=== PATIENT | female | born 1965 | race Hispanic/Latino ===

== ENCOUNTER → 2017-09-06 | Day surgery (SDC) | payer OTHER ==
[2017-08-13 10:49] LABS: BASOPHILS % 0.3 % (0.0-1.0); EOSINOPHILS # (AUTO) 0.1 (0.0-0.4); EOSINOPHILS % 1.4 % (0.0-6.0); LYMPHOCYTES # (AUTO) 2.9 (1.0-3.2); MEAN CORPUSCULAR HEMOGLOBIN 27.2 pg (28-32); MEAN CORPUSCULAR HGB CONC 32.5 g/dL (31-35); MEAN CORPUSCULAR VOLUME 83.7 fL (81-99); MONOCYTES # (AUTO) 0.5 (0.2-0.8); MONOCYTES % 6.9 % (4.4-11.3); NEUTROPHILS # (AUTO) 3.1 (2.1-6.9); NEUTROPHILS % 47.2 % (38.7-80.0); PLATELET COUNT 304 x10e3/uL (140-360); RED BLOOD COUNT 4.78 x10e6/uL (3.6-5.1); RED CELL DISTRIBUTION WIDTH 13.8 % (11.7-14.4)
[2017-08-13 10:49] LABS: BILIRUBIN,URINE NEGATIVE (NEGATIVE); CLARITY,URINE SL CLOUDY (CLEAR); COLOR,URINE YELLOW (YELLOW); KETONES,URINE NEGATIVE (NEGATIVE); LEUKOCYTE ESTERASE ,URINE 1+ (NEGATIVE); NITRITE,URINE NEGATIVE (NEGATIVE); PROTEIN,URINE DIPSTICK NEGATIVE (NEGATIVE); URINE UROBILINOGEN 0.2 mg/dL (0.2 - 1)
[2017-08-13 11:16] LABS: ALANINE AMINOTRANSFERASE 35 IU/L (0-55); ALKALINE PHOSPHATASE 54 IU/L (40-150); ANION GAP 12.1 mmol/L (8-16); BLOOD UREA NITROGEN 8 mg/dL (7-26); BUN/CREATININE RATIO 11 (6-25); CALCIUM 9.6 mg/dL (8.4-10.2); CARBON DIOXIDE 26 mmol/L (22-29); CHLORIDE 108 mmol/L (98-107); EST GLOMERULAR FILTRATION RATE > 60 ML/MIN (60-); GLUCOSE 87 mg/dL (74-118); POTASSIUM 4.1 mmol/L (3.5-5.1); SODIUM 142 mmol/L (136-145)
--- NOTE | 2017-08-13 11:59 | Diagnostic Imaging Report ---
PROCEDURE: Frontal and lateral views of the chest. COMPARISON: [facility], , CHEST 2 VIEWS, 06/30/2016, 23:32. INDICATIONS: PREOPERATIVE CHEST XRAY FOR GALLBLADDER SURGERY FINDINGS: Lines/tubes: None. Lungs: The lungs are well inflated. Stable 3 mm calcified granuloma in the right midlung. There is no evidence of pneumonia or pulmonary edema. Pleura: There is no pleural effusion or pneumothorax. Heart and mediastinum: The heart and the mediastinum are normal. Bones: No acute bony abnormality. IMPRESSION: 1. No acute cardiopulmonary abnormalities. Grayson Mondragon M.D. Dictated by: Grayson Mondragon M.D. on 08/13/2017 at 12:02 Electronically approved by: Grayson Mondragon M.D. on 08/13/2017 at 12:02
[~2017-09-06] MED LIST: ALENDRONATE SOD70 MG PO; BUPIVACAINE 0.25% 30ML SDV INJ ONE; CALCIUM PO; DEXAMETHASONE SOD PHOS INJ 4 MG/ML VIAL ONE; DICLOFENAC PO; DICYCLOMINE HCL20 MG PO; FENTANYL CITRATE/PF 100MCG/2 ML INJ ONE; HYDROCODONE/APAP 7.5MG-325MG 1 EA TAB ONE; KETOROLAC TROMETHAMINE 30 MG/ML VIAL ONE; LIDOCAINE HCL 2% LOCAL INJ 5 ML SDV VIAL INJ ONE; METHOCARBAMOL750 MG PO; MIDAZOLAM HCL 2 MG/2 ML VIAL ONE; NAPROXEN250 MG PO; ONDANSETRON HCL INJ 2 MG/ML VIAL ONE; PROPOFOL IV EMULSION 10 MG/ML 20 ML VIAL ONE; ROCURONIUM BROMIDE 10 MG/ML 5ML VIAL ONE; SEVOFLURANE INHAL SOLN 250 ML PEN BTL ONE; VIT D PO
--- NOTE | 2017-09-06 10:15 | Operative Report ---
DATE OF PROCEDURE: September 06, 2017 PREOPERATIVE DIAGNOSES 1. Biliary dyskinesia. 2. Heartburn. POSTOPERATIVE DIAGNOSES 1. Biliary dyskinesia. 2. Heartburn. OPERATIONS PERFORMED 1. Laparoscopic cholecystectomy. 2. Esophagogastroduodenoscopy. AGENT CONTRACT CLERK: TERRA Starr. ANESTHESIA: General. COMPLICATIONS: None. ESTIMATED BLOOD LOSS: Minimal. DESCRIPTION OF PROCEDURE: With the patient lying in bed in the supine position and under good general endotracheal anesthesia, the abdomen was prepped with Betadine solution and draped in the usual manner. A Veress needle was introduced into the umbilicus and pneumoperitoneum was established without any difficulty. An 11-mm trocar was placed into the umbilicus, and a 10 mm video laparoscope was placed into the intra-abdominal cavity. Under direct vision, three 5-mm trocars were placed in the right subcostal region. Video laparoscopy at this point revealed some adhesions to the lower abdomen from the patient's previous pelvic surgery. The liver appeared to be normal. The gallbladder was somewhat distended, boggy and thin walled. There were some adhesions from the duodenum and stomach to the gallbladder. Otherwise, the rest of the abdominal exploration was within normal limits. The adhesions to the gallbladder were then slowly and carefully taken down. The peritoneum overlying the neck of the gallbladder was then opened and the cystic duct was identified. The cystic duct was followed to its junction with the common duct. Cystic duct was then circumferentially dissected away from the common duct, doubly clipped and divided. The cystic artery was similarly doubly clipped and divided. The gallbladder was then slowly and carefully taken off the liver bed using the cautery scissors. Perfect hemostasis was ascertained. The gallbladder was then grasped through the umbilical port and removed without any difficulty. Video laparoscopy was then again carried out. The liver bed was found to be perfectly dry. All the excess fluid was aspirated. The pneumoperitoneum was evacuated, and all the trocars were removed under direct vision. The midline fascia at the umbilicus was then closed with figure-of-8 of 0 Vicryl. All layers were infiltrated on the way out with a solution of 0.25% percent Marcaine. Subcutaneous tissue was approximated with 3-0 Vicryl and the skin was closed with subcuticular 5-0 Vicryl. Benzoin, Steri-Strips and Band-Aids were applied. The sponge, lap and needle count was correct. The flexible Olympus gastroscope was introduced into the back of the throat and slowly and carefully advanced. The entire length of the esophagus was found to be within normal limits. The esophagogastric junction showed some minimal signs of esophagitis. The stomach was then entered and insufflated and inspected, including retroflexion of the scope. This showed pretty normal mucosal pattern with no polypoid masses or other mucosal lesions. The pylorus was entered and the duodenum was examined all the way up to the 3rd portion, and it appeared to be within normal limits. The scope was then slowly and carefully withdrawn. The patient tolerated both procedures well, and returned to the recovery room in stable condition. Job#: [id number] CARLY
== END | disposition home or self-care (01) ==
LOC: OR 05:13
PROVIDERS: ATTEND Surgery
DX: K81.1 Chronic cholecystitis (principal); K20.9 Esophagitis, unspecified; K21.9 Gastro-esophageal reflux disease without esophagitis; K58.9 Irritable bowel syndrome, unspecified; R00.1 Bradycardia, unspecified; Z88.8 Allergy status to other drugs, medicaments and biological substances; Z01.810 Encounter for preprocedural cardiovascular examination; Z01.812 Encounter for preprocedural laboratory examination; Z01.818 Encounter for other preprocedural examination
CPT/HCPCS: 36415; 43235; 47562; 71046; 80053; 81003; 85025; 88304; 93005; C1766; J1100; J1885; J2001; J2250; J2405

== ENCOUNTER 2017-09-11 14:16 | Emergency (ER) | payer OTHER ==
[~2017-09-11] VITALS: Ht 162.6 cm; Wt 68.0 kg
[~2017-09-11 14:16] MED LIST changes: -BUPIVACAINE 0.25% 30ML SDV INJ ONE; -DEXAMETHASONE SOD PHOS INJ 4 MG/ML VIAL ONE; -FENTANYL CITRATE/PF 100MCG/2 ML INJ ONE; -HYDROCODONE/APAP 7.5MG-325MG 1 EA TAB ONE; -KETOROLAC TROMETHAMINE 30 MG/ML VIAL ONE; -LIDOCAINE HCL 2% LOCAL INJ 5 ML SDV VIAL INJ ONE; -MIDAZOLAM HCL 2 MG/2 ML VIAL ONE; -ONDANSETRON HCL INJ 2 MG/ML VIAL ONE; -PROPOFOL IV EMULSION 10 MG/ML 20 ML VIAL ONE; -ROCURONIUM BROMIDE 10 MG/ML 5ML VIAL ONE; -SEVOFLURANE INHAL SOLN 250 ML PEN BTL ONE
[2017-09-11] MEDS ORDERED: SODIUM CHLORIDE 0.9% 1000ML 1,000 ML IV STA (14:37)
[2017-09-11] MEDS ORDERED: MORPHINE SULFATE INJ 4 MG/ML INJ IV STA (14:37)
[2017-09-11] MEDS ORDERED: FAMOTIDINE 20 MG/2 ML VIAL IV ONE (14:45)
[2017-09-11] MEDS ORDERED: ONDANSETRON HCL INJ 2 MG/ML VIAL IV ONE (14:45)
[2017-09-11] MEDS ORDERED: DIATRIZOATE MEGL/DIATRIZOA SOD 30 ML BTL PO ONE (14:54)
[2017-09-11 15:20] LABS: BASOPHILS % 0.2 % (0.0-1.0); EOSINOPHILS % 0.2 % (0.0-6.0); HEMATOCRIT 37.8 % (34.2-44.1); HEMOGLOBIN 12.6 g/dL (12.0-16.0); LYMPHOCYTES # (AUTO) 1.8 (1.0-3.2); LYMPHOCYTES % 13.6 % (18.0-39.1); MEAN CORPUSCULAR HGB CONC 33.3 g/dL (31-35); MEAN CORPUSCULAR VOLUME 80.9 fL (81-99); MONOCYTES # (AUTO) 0.7 (0.2-0.8); MONOCYTES % 5.3 % (4.4-11.3); NEUTROPHILS # (AUTO) 10.3 (2.1-6.9); NEUTROPHILS % 80.2 % (38.7-80.0); PLATELET COUNT 298 x10e3/uL (140-360); RED BLOOD COUNT 4.67 x10e6/uL (3.6-5.1); RED CELL DISTRIBUTION WIDTH 13.3 % (11.7-14.4)
[2017-09-11 15:21] LABS: BILIRUBIN,URINE NEGATIVE (NEGATIVE); CLARITY,URINE CLEAR (CLEAR); COLOR,URINE YELLOW (YELLOW); KETONES,URINE NEGATIVE (NEGATIVE); LEUKOCYTE ESTERASE ,URINE TRACE (NEGATIVE); NITRITE,URINE NEGATIVE (NEGATIVE); PROTEIN,URINE DIPSTICK NEGATIVE (NEGATIVE); URINE UROBILINOGEN 0.2 mg/dL (0.2 - 1)
[2017-09-11 15:31] LABS: BACTERIA,URINE RARE /HPF; EPITHELIAL CELLS,URINE MANY /LPF; RBC,URINE 0-5 /HPF (0-5)
[2017-09-11 15:32] LABS: MUCUS,URINE FEW (RARE)
[2017-09-11 15:35] LABS: ALANINE AMINOTRANSFERASE 29 IU/L (0-55); ALBUMIN 3.9 g/dL (3.5-5.0); ALBUMIN/GLOBULIN RATIO 0.9 (0.8-2.0); ALKALINE PHOSPHATASE 64 IU/L (40-150); AMYLASE 62 U/L (25-125); ANION GAP 14.9 mmol/L (8-16); BLOOD UREA NITROGEN 8 mg/dL (7-26); BUN/CREATININE RATIO 12 (6-25); CALCIUM 9.5 mg/dL (8.4-10.2); CARBON DIOXIDE 22 mmol/L (22-29); CHLORIDE 96 mmol/L (98-107); CREATININE, SERUM 0.66 mg/dL (0.57-1.11); EST GLOMERULAR FILTRATION RATE > 60 ML/MIN (60-); GLUCOSE 101 mg/dL (74-118); LIPASE 19 U/L (8-78); POTASSIUM 3.9 mmol/L (3.5-5.1); SODIUM 129 mmol/L (136-145)
[2017-09-11] MEDS ORDERED: KETOROLAC TROMETHAMINE 30 MG/ML VIAL IV PRN (16:15)
--- NOTE | 2017-09-11 19:21 | Diagnostic Imaging Report ---
EXAM: CT ABDOMEN AND PELVIS with IV CONTRAST DATE: 09/11/2017 2:37 PM Time stamp on Exam: 1649 hours INDICATION: Gallbladder surgery September 06, diffuse sharp abdominal pain that radiates to back COMPARISON: None TECHNIQUE: The abdomen and pelvis were scanned using a multidetector helical scanner. Coronal and sagittal reformations were obtained. Routine protocol performed. IV Contrast: 100 cc Isovue 370 Oral Contrast: Gastrografin CTDIvol has been reviewed. It is below the limits set by the Radiation Protocol Committee (RPC). FINDINGS: LOWER THORAX: Subsegmental linear atelectasis right lung base. LIVER: Simple hepatic liver cysts. BILIARY: Surgical changes of recent cholecystectomy. Trace fluid in the gallbladder fossa and around the liver tip. No abnormal ductal dilation. SPLEEN: No masses PANCREAS: No masses ADRENALS: No nodules KIDNEYS: Symmetric perfusion. No enhancing masses. No hydronephrosis. GI TRACT: No distention, wall thickening or evidence of obstruction. Normal appendix. VESSELS: Unremarkable PERITONEUM/RETROPERITONEUM: No free air or fluid LYMPH NODES: No lymphadenopathy REPRODUCTIVE ORGANS: Unremarkable BLADDER: Unremarkable SOFT TISSUES: Expected postsurgical changes of laparoscopic cholecystectomy. No abnormal fluid collections. BONES: No suspicious bone lesions. IMPRESSION: Expected postsurgical changes of recent laparoscopic cholecystectomy. Trace residual fluid in the gallbladder fossa and around the inferior tip of the liver. Otherwise normal appearance of the abdomen. No evidence of abscess, bowel obstruction, pancreatitis or hernia. Signed by: Dr. Jovanna Scott M.D. on 09/11/2017 7:17 PM
[2017-09-11] MEDS ORDERED: MORPHINE SULFATE 2 MG/ML SYR IV STA (19:43)
[2017-09-11] MEDS ORDERED: KETOROLAC TROMETHAMINE 30 MG/ML VIAL IV STA (19:43)
[2017-09-11] MEDS ORDERED: SODIUM CHLORIDE 0.9% 50ML 50 ML ONE (22:58)
[2017-09-11] MEDS ORDERED: IOPAMIDOL 370 MG/ML 200 ML INFUS..BTL INJ ONE (23:00)
== END 2017-09-11 21:14 | disposition home or self-care (01) ==
LOC: ER 14:16
DX: R10.11 Right upper quadrant pain (principal); K59.00 Constipation, unspecified
CPT/HCPCS: 36415; 74177; 80053; 81001; 82150; 83690; 84702; 85025; 99284; J1885; J2270 ×2; J2405; J7030; Q9967

== ENCOUNTER 2017-09-12 16:25 | Observation (INO) | payer OTHER ==
[~2017-09-12] VITALS: Ht 160 cm; Wt 68.0 kg
[2017-09-12] MEDS ORDERED: PANTOPRAZOLE 40 MG 10ML VIAL IV STA (16:40)
[2017-09-12] MEDS ORDERED: MORPHINE SULFATE INJ 4 MG/ML INJ IV ONE (16:40)
[2017-09-12] MEDS ORDERED: SODIUM CHLORIDE 0.9% 1000ML 1,000 ML IV STA (16:40)
[2017-09-12] MEDS ORDERED: ONDANSETRON HCL INJ 2 MG/ML VIAL IV PRN (16:45)
[2017-09-12] MEDS ORDERED: PROMETHAZINE 12.5MG/ NACL 0.9% 12.5 MG/50 ML BAG IV ONE (16:45)
[2017-09-12] MEDS ORDERED: DIPHENHYDRAMINE HCL INJ 50 MG/ML VIAL IV ONE (16:45)
[2017-09-12 16:50] LABS: BASOPHILS % 0.1 % (0.0-1.0); EOSINOPHILS % 0.1 % (0.0-6.0); HEMATOCRIT 39.9 % (34.2-44.1); HEMOGLOBIN 13.5 g/dL (12.0-16.0); LYMPHOCYTES # (AUTO) 1.2 (1.0-3.2); LYMPHOCYTES % 7.6 % (18.0-39.1); MEAN CORPUSCULAR HEMOGLOBIN 27.4 pg (28-32); MEAN CORPUSCULAR HGB CONC 33.8 g/dL (31-35); MEAN CORPUSCULAR VOLUME 81.1 fL (81-99); MONOCYTES # (AUTO) 0.8 (0.2-0.8); MONOCYTES % 4.9 % (4.4-11.3); NEUTROPHILS # (AUTO) 13.4 (2.1-6.9); NEUTROPHILS % 86.8 % (38.7-80.0); PLATELET COUNT 330 x10e3/uL (140-360); RED BLOOD COUNT 4.92 x10e6/uL (3.6-5.1); RED CELL DISTRIBUTION WIDTH 13.3 % (11.7-14.4)
[2017-09-12 16:56] LABS: BILIRUBIN,URINE 1+ (NEGATIVE); CLARITY,URINE CLOUDY (CLEAR); COLOR,URINE YELLOW (YELLOW); KETONES,URINE 2+ (NEGATIVE); LEUKOCYTE ESTERASE ,URINE TRACE (NEGATIVE); NITRITE,URINE NEGATIVE (NEGATIVE); PROTEIN,URINE DIPSTICK 1+ (NEGATIVE); URINE UROBILINOGEN 0.2 mg/dL (0.2 - 1)
[2017-09-12 17:07] LABS: BACTERIA,URINE MANY /HPF; EPITHELIAL CELLS,URINE MANY /LPF; RBC,URINE 0-5 /HPF (0-5); TRANSITIONAL EPI CELLS,URINE FEW; WBC,URINE (MAN) 0-5 /HPF (0-5)
[2017-09-12 17:09] LABS: ALANINE AMINOTRANSFERASE 32 IU/L (0-55); ALBUMIN/GLOBULIN RATIO 0.9 (0.8-2.0); ALKALINE PHOSPHATASE 102 IU/L (40-150); AMYLASE 47 U/L (25-125); ANION GAP 16.1 mmol/L (8-16); BLOOD UREA NITROGEN 9 mg/dL (7-26); BUN/CREATININE RATIO 12 (6-25); CALCIUM 9.9 mg/dL (8.4-10.2); CARBON DIOXIDE 24 mmol/L (22-29); CHLORIDE 100 mmol/L (98-107); CREATININE, SERUM 0.76 mg/dL (0.57-1.11); EST GLOMERULAR FILTRATION RATE > 60 ML/MIN (60-); GLUCOSE 123 mg/dL (74-118); LIPASE 11 U/L (8-78); MAGNESIUM 2.3 MG/DL (1.3-2.1); POTASSIUM 4.1 mmol/L (3.5-5.1); SODIUM 136 mmol/L (136-145)
[2017-09-12] MEDS ORDERED: CEFTRIAXONE SOD 1 GM VIAL IV ONE (17:30)
--- NOTE | 2017-09-12 18:43 | Diagnostic Imaging Report ---
PROCEDURE:ABDOMEN ACUTE SERIES W/PA CXR COMPARISON:[facility], CT, CT ABDOMEN/PELVIS W, 09/11/2017, 16:45. INDICATIONS:UPPER ABDOMEN PAIN, DIZZINESS FINDINGS: CHEST: Linear opacities in bilateral lower lungs, likely represent subsegmental atelectasis. No consolidation or effusion. BOWEL PATTERN: Mild dilation of the cecum, which measures 10.7 cm and ascending and transverse colon, which measures 6.6 cm. The ascending colon and cecum are filled with large amount of stool and residual contrast from CT abdomen and pelvis performed yesterday. Large amount of stool is also noted in the rectum. No small bowel dilation. SOFT TISSUES: Unremarkable. BONES: Unremarkable. CONCLUSION: 1. bilateral lower lung subsegmental atelectasis. 2. Mild dilation of the cecum and ascending and transverse colon with large amount of stool and residual contrast from CT abdomen and pelvis performed yesterday. Large amount of stool is also noted in the rectum. This may represent fecal impaction. No small bowel dilation is identified. Grayson Mondragon M.D. Dictated by: Grayson Mondragon M.D. on 09/12/2017 at 18:47 Electronically approved by: Grayson Mondragon M.D. on 09/12/2017 at 18:47
[2017-09-12 19:38] VITALS: BP 131/76
[2017-09-12 20:00] VITALS: BP 118/62
[2017-09-12] MEDS ORDERED: MAGNESIUM HYDROXIDE 30 ML UDC PO ONE (20:00)
[2017-09-12] MEDS ORDERED: MINERAL OIL 132 ML BTL PR ONE (20:00)
[2017-09-12] MEDS: D5.45%NS/KCL 20MEQ 1,000 ML IV SCH (20:07)
[2017-09-12 20:37] VITALS: BP 118/62
[2017-09-12 21:00] VITALS: BP 118/62
[2017-09-12] MEDS: MORPHINE SULFATE 2 MG/ML SYR IV PRN (23:54)
[2017-09-13] VITALS (8 sets, daily range): BP systolic 113–129; BP diastolic 59–78
[2017-09-13] MEDS: D5.45%NS/KCL 20MEQ 1,000 ML IV SCH ×4 (00:44→16:44)
[2017-09-13] MEDS: MORPHINE SULFATE 2 MG/ML SYR IV PRN ×2 (05:00→10:03)
[2017-09-13] MEDS ORDERED: CITRATE OF MAGNESIA 300ML BOTTLE PO NR (19:00)
[2017-09-14] VITALS: BP 130/77
[2017-09-14] MEDS: D5.45%NS/KCL 20MEQ 1,000 ML IV SCH (00:33)
[2017-09-14 04:00] VITALS: BP 122/67
[2017-09-14 08:00] VITALS: BP 123/58
[2017-09-14 12:07] VITALS: BP 128/76
== END 2017-09-14 15:12 | disposition home or self-care (01) ==
LOC: ER 16:25 → ERHOLD 17:04 → IMCU 18:19
PROVIDERS: ADMIT Surgery; ATTEND Surgery
DX: K56.49 Other impaction of intestine (principal); Z90.49 Acquired absence of other specified parts of digestive tract
CPT/HCPCS: 36415; 74022; 80053; 81001; 82150; 83690; 83735; 85025; 99284; G0378 ×3; J0696; J1200; J2270 ×3; J2405; J2550; J7030

== ENCOUNTER → 2022-08-02 | Day surgery (SDC) | payer OTHER ==
[2022-07-31 08:43] LABS: BASOPHILS % 0.5 % (0.0-1.0); EOSINOPHILS # (AUTO) 0.1 (0.0-0.4); EOSINOPHILS % 1.4 % (0.0-6.0); HEMATOCRIT 41.3 % (34.2-44.1); HEMOGLOBIN 13.4 g/dL (12.0-16.0); LYMPHOCYTES # (AUTO) 3.1 (1.0-3.2); LYMPHOCYTES % 35.8 % (18.0-39.1); MEAN CORPUSCULAR HEMOGLOBIN 27.3 pg (28-32); MEAN CORPUSCULAR HGB CONC 32.4 g/dL (31-35); MEAN CORPUSCULAR VOLUME 84.3 fL (81-99); MONOCYTES # (AUTO) 0.5 (0.2-0.8); MONOCYTES % 5.7 % (4.4-11.3); NEUTROPHILS # (AUTO) 4.9 (2.1-6.9); NEUTROPHILS % 56.1 % (38.7-80.0); PLATELET COUNT 306 x10e3/uL (140-360)
[2022-07-31 09:10] LABS: ANION GAP 13.9 mmol/L (8-16); CALCIUM 9.1 mg/dL (8.4-10.2); CHOL/HDL RATIO 5.1 (3.0-3.6); CREATININE, SERUM 0.73 mg/dL (0.57-1.11); POTASSIUM 3.9 mmol/L (3.5-5.1)
[2022-08-02] VITALS (10 sets, daily range): BP systolic 102–178; BP diastolic 62–84; PULSE 58–86; RESP 10–17; TEMP 98.6; O2SAT 97–99
[~2022-08-02] VITALS: Ht 160 cm; Wt 63.5 kg
[~2022-08-02] MED LIST changes: +ADVAIR 100-501 EACH INH; +ALPRAZOLAM 0.5 MG TAB ONE; +CALCIUM CARBON500 MG PO; +DIPHENHYDRAMINE HCL 25 MG CAP ONE; +FENTANYL CITRATE/PF 100MCG/2 ML INJ ONE; +FLONASE ALLERG9.9 ML INH; +HEPARIN SOD (PORCINE) 1000 UNIT/ML 30ML ONE; +HEPARIN SOD/SOD CHLORIDE 2,000 ML ONE; +IOPAMIDOL 370 MG/ML 100 ML INFUS..BTL INJ ONE; +LEVOCETIRIZINE D5 MG PO; +LIDOCAINE HCL 2% LOCAL 20 ML VIAL ONE; +LOSARTAN POTASS25 MG PO; +MIDAZOLAM HCL 2 MG/2 ML VIAL ONE; +NITROGLYCERIN/D5W 200 MCG/ML 250 ML ONE; +SODIUM CHLORIDE 0.9% 1000ML 1,000 ML ONE; +VERAPAMIL HCL 2.5 MG/ML 2 ML VIAL ONE; +VITAMIN D31250 MCG; +albuterol sulfate NEB
== END | disposition home or self-care (01) ==
LOC: CATH LAB 06:12
PROVIDERS: ATTEND Internal Medicine Interventional Cardiology
DX: I25.118 Atherosclerotic heart disease of native coronary artery with other forms of angina pectoris (principal); I77.1 Stricture of artery; I10 Essential (primary) hypertension; J45.20 Mild intermittent asthma, uncomplicated; Z71.82 Exercise counseling; Z71.3 Dietary counseling and surveillance; Z88.8 Allergy status to other drugs, medicaments and biological substances; Z01.812 Encounter for preprocedural laboratory examination; Z79.899 Other long term (current) drug therapy
CPT/HCPCS: 36415; 80053; 80061; 85025; 93458; C1887 ×2; C1894; J1644; J2001; J2250; J3010; J7030; Q9967; 99152; 99153